=== PATIENT | male | born 1965 | race Caucasian/White ===

== ENCOUNTER 2019-08-25 | Emergency (ER) | payer SELFPAY ==
[2019-08-25 16:29] LABS: HEMATOCRIT 50.5 % (39.0-50.0); HEMOGLOBIN 17.4 g/dl (14.0-18.0); IMMATURE GRANULOCYTES 0.4 % (0.0-5.0); MEAN CELL VOLUME 85.7 fL CALC (80.0-100.0); MEAN CORPUSCULAR HGB 29.5 pG CALC (26.0-32.0); MEAN CORPUSCULAR HGB CONC 34.5 g/L CALC (32.0-36.0); NEUT# 16.53 thou/uL (1.82-7.42); RED BLOOD COUNT 5.89 mill/uL (4.70-6.10); RED CELL DISTRI WIDTH 13.4 % (11.5-15.5)
[2019-08-25 16:50] LABS: ALBUMIN 5.6 g/dL (3.2-5.0); ALKALINE PHOSPHATASE 82 u/l (38-126); ANION GAP 23 (6-22 (CALC)); BILIRUBIN, TOTAL 0.9 mg/dL (0.0-1.4); BUN 20 mg/dL (9-20); BUN/CREATININE RATIO 16 (12-20 (CALC)); CARBON DIOXIDE 26 mmol/l (22-30); CHLORIDE 102 mmol/l (95-108); CREATININE 1.2 mg/dL (0.7-1.3); GFR > 60 ML/MIN (>=60 (CALC)); GFR FOR AFR.AMER. > 60 ML/MIN (>=60 (CALC)); LIPASE 25 u/l (23-300); POTASSIUM 4.4 mmol/l (3.5-5.1); SGOT/AST 36 u/l (17-59); SODIUM 146 mmol/l (137-146); TOTAL PROTEIN 9.3 g/dL (6.3-8.2)
[2019-08-25] MEDS ORDERED: ZOFRAN4 MG/TAB PO (18:16)
== END 2019-08-25 19:16 | disposition home or self-care (01) | DRG 866 ==
DX: B34.9 Viral infection, unspecified (principal); Q05.9 Spina bifida, unspecified

== ENCOUNTER 2019-08-28 | Emergency (ER) | payer SELFPAY ==
[~2019-08-28] MED LIST: ZOFRAN4 MG/TAB PO
[2019-08-28] MEDS ORDERED: PHENERGAN25 MG/TAB PO (14:48)
[2019-08-28 16:02] LABS: HEMOGLOBIN 16.3 g/dl (14.0-18.0); IMMATURE GRANULOCYTES 0.6 % (0.0-5.0); MEAN CELL VOLUME 86.8 fL CALC (80.0-100.0); MEAN CORPUSCULAR HGB 29.5 pG CALC (26.0-32.0); NEUT# 12.81 thou/uL (1.82-7.42); RED BLOOD COUNT 5.53 mill/uL (4.70-6.10); RED CELL DISTRI WIDTH 13.2 % (11.5-15.5)
[2019-08-28 16:44] LABS: ALBUMIN 4.8 g/dL (3.2-5.0); ALKALINE PHOSPHATASE 68 u/l (38-126); ANION GAP 18 (6-22 (CALC)); BILIRUBIN, TOTAL 1.1 mg/dL (0.0-1.4); BUN 28 mg/dL (9-20); BUN/CREATININE RATIO 25 (12-20 (CALC)); CARBON DIOXIDE 29 mmol/l (22-30); CHLORIDE 96 mmol/l (95-108); CREATININE 1.1 mg/dL (0.7-1.3); GFR > 60 ML/MIN (>=60 (CALC)); GFR FOR AFR.AMER. > 60 ML/MIN (>=60 (CALC)); LIPASE 275 u/l (23-300); POTASSIUM 3.3 mmol/l (3.5-5.1); SGOT/AST 87 u/l (17-59); SODIUM 140 mmol/l (137-146); TOTAL PROTEIN 8.1 g/dL (6.3-8.2)
[2019-08-28 17:37] LABS: URINE BILIRUBIN - DIPSTICK NEGATIVE (NEGATIVE); URINE BLOOD DIPSTICK NEGATIVE (NEGATIVE); URINE COLOR YELLOW; URINE GLUCOSE - DIPSTICK NEGATIVE (NEGATIVE); URINE KETONE NEGATIVE (NEGATIVE); URINE LEUK ESTERASE NEGATIVE (NEGATIVE); URINE NITRITE - DIPSTICK NEGATIVE (Negative); URINE PROTEIN - DIPSTICK 30 mg/dL (NEG-TRACE)
[2019-08-28 17:49] LABS: BARBITURATES NEGATIVE (NEGATIVE); COCAINE NEGATIVE (NEGATIVE); METHADONE NEGATIVE (NEGATIVE); OXCYCODONE NEGATIVE (NEGATIVE); TETRAHYDROCANNABIONOL POSITIVE (NEGATIVE); TRICYLIC ANTIDEPRESSANTS NEGATIVE (NEGATIVE)
[2019-08-28 17:57] LABS: URINE SQUAMOUS EPITHELIAL CELL FEW EPI/hpf (0-FEW)
[2019-08-28] MEDS ORDERED: DICYCLOMINE20 MG PO (20:25)
[2019-08-28] MEDS ORDERED: ZOFRAN4 MG/TAB PO (20:25)
--- NOTE | 2019-08-30 10:46 | NUR ---
Called and left for pt due to blood culture preliminary results growing gram positive cocci in 1/2 sets.
--- NOTE | 2019-08-30 13:20 | NUR ---
Spoke with pt concerning blood culture results. Pt reports he is having fevers, has a "bug bite" that is swollen and painful, and still having abdominal pain. Recommended to patient that if he is unable to see his PCP today, he should return to the ED. Pt verbalized understanding.
== END 2019-08-28 20:33 | disposition home or self-care (01) | DRG 392 ==
DX: R10.84 Generalized abdominal pain (principal); R11.2 Nausea with vomiting, unspecified; Q05.9 Spina bifida, unspecified

== ENCOUNTER 2019-08-30 13:39 | Observation (INO) | payer SELFPAY ==
[~2019-08-30] VITALS: Ht 177.8 cm; Wt 100.0 kg
[~2019-08-30 13:39] MED LIST changes: +DICYCLOMINE20 MG PO; +PHENERGAN25 MG/TAB PO
[2019-08-30] MEDS ORDERED: FAMOTIDINE20 M1 PO (14:26)
[2019-08-30 15:50] LABS: HEMATOCRIT 45.3 % (39.0-50.0); HEMOGLOBIN 15.7 g/dl (14.0-18.0); MEAN CELL VOLUME 84.5 fL CALC (80.0-100.0); MEAN CORPUSCULAR HGB 29.3 pG CALC (26.0-32.0); MEAN CORPUSCULAR HGB CONC 34.7 g/L CALC (32.0-36.0); NEUT# 10.35 thou/uL (1.82-7.42); RED BLOOD COUNT 5.36 mill/uL (4.70-6.10); RED CELL DISTRI WIDTH 12.8 % (11.5-15.5)
[2019-08-30 16:16] LABS: ALBUMIN 4.1 g/dL (3.2-5.0); ALKALINE PHOSPHATASE 56 u/l (38-126); ANION GAP 14 (6-22 (CALC)); BILIRUBIN, TOTAL 0.8 mg/dL (0.0-1.4); BUN 16 mg/dL (9-20); BUN/CREATININE RATIO 19 (12-20 (CALC)); CARBON DIOXIDE 26 mmol/l (22-30); CHLORIDE 101 mmol/l (95-108); CREATININE 0.8 mg/dL (0.7-1.3); GFR > 60 ML/MIN (>=60 (CALC)); GFR FOR AFR.AMER. > 60 ML/MIN (>=60 (CALC)); LIPASE 522 u/l (23-300); POTASSIUM 3.4 mmol/l (3.5-5.1); SGOT/AST 38 u/l (17-59); SODIUM 137 mmol/l (137-146)
[2019-08-30 19:52] VITALS: BP 176/92
[2019-08-31 00:13] VITALS: BP 191/104
[2019-08-31 01:48] VITALS: BP 170/94
[2019-08-31 03:30] VITALS: BP 158/104
[2019-08-31 05:25] VITALS: BP 160/80
[2019-08-31 08:00] VITALS: BP 132/75
== END 2019-08-31 14:00 | disposition home or self-care (01) | DRG 392 ==
LOC: ED 13:39 → ED-I 16:37 → ED 16:50 → MS2 16:51
PROVIDERS: Family Medicine; ADMIT Internal Medicine; ATTEND Internal Medicine
DX: R11.2 Nausea with vomiting, unspecified (principal); R10.9 Unspecified abdominal pain; R19.7 Diarrhea, unspecified; R23.8 Other skin changes; R79.89 Other specified abnormal findings of blood chemistry; F12.90 Cannabis use, unspecified, uncomplicated; Q05.9 Spina bifida, unspecified; K29.70 Gastritis, unspecified, without bleeding; Z87.891 Personal history of nicotine dependence; Z87.898 Personal history of other specified conditions; Z23 Encounter for immunization
CPT/HCPCS: G0378; J1650

== ENCOUNTER 2021-08-27 17:45 | Emergency (ER) | payer SELFPAY ==
[~2021-08-27] VITALS: Ht 177.8 cm; Wt 100.0 kg
[~2021-08-27 17:45] MED LIST changes: +FAMOTIDINE20 M1 PO
[2021-08-27 20:27] LABS: HEMATOCRIT 48.1 % (39.0-50.0); HEMOGLOBIN 16.3 g/dl (14.0-18.0); IMMATURE GRANULOCYTES 0.3 % (0.0-5.0); MEAN CELL VOLUME 85.9 fL CALC (80.0-100.0); MEAN CORPUSCULAR HGB 29.1 pG CALC (26.0-32.0); MEAN CORPUSCULAR HGB CONC 33.9 g/dL CAL (32.0-36.0); NEUT# 2.92 thou/uL (1.82-7.42); RED BLOOD COUNT 5.6 mill/uL (4.70-6.10); RED CELL DISTRI WIDTH 13.4 % (11.5-15.5); URINE BILIRUBIN - DIPSTICK NEGATIVE (NEGATIVE); URINE BLOOD DIPSTICK NEGATIVE (NEGATIVE); URINE COLOR YELLOW; URINE GLUCOSE - DIPSTICK NEGATIVE (NEGATIVE); URINE KETONE NEGATIVE (NEGATIVE); URINE LEUK ESTERASE NEGATIVE (NEGATIVE); URINE PROTEIN - DIPSTICK NEGATIVE (NEG-TRACE); URINE SPECIFIC GRAVITY >=1.030; URINE UROBILINOGEN - DIPSTICK 0.2 E.U./dL (0.2)
[2021-08-27 20:29] LABS: URINE NITRITE - DIPSTICK NEGATIVE (Negative)
[2021-08-27 20:38] LABS: ALBUMIN 4.5 g/dL (3.2-5.0); ALKALINE PHOSPHATASE 81 u/l (38-126); BILIRUBIN, TOTAL 0.5 mg/dL (0.0-1.4); BUN 17 mg/dL (9-20); BUN/CREATININE RATIO 16 (12-20 (CALC)); CARBON DIOXIDE 28 mmol/l (22-30); CHLORIDE 106 mmol/l (95-108); CREATININE 1.1 mg/dL (0.7-1.3); GFR > 60 ML/MIN (>=60 (CALC)); GFR FOR AFR.AMER. > 60 ML/MIN (>=60 (CALC)); SGOT/AST 31 u/l (17-59); SODIUM 143 mmol/l (137-146); TOTAL PROTEIN 8.2 g/dL (6.3-8.2)
[2021-08-27 20:39] LABS: ANION GAP 14 (6-22 (CALC)); POTASSIUM 4.5 mmol/l (3.5-5.1)
[2021-08-27 20:55] VITALS: BP 139/87
== END 2021-08-27 20:55 | disposition home or self-care (01) | DRG 179 ==
LOC: ED 17:45
PROVIDERS: Emergency Medicine
DX: U07.1 COVID-19 (principal); Q05.9 Spina bifida, unspecified; F41.9 Anxiety disorder, unspecified; F32.A Depression, unspecified; G47.33 Obstructive sleep apnea (adult) (pediatric)

== ENCOUNTER 2022-06-20 09:51 | Emergency (ER) | payer MEDICAID ==
[~2022-06-20] VITALS: Ht 177.8 cm; Wt 97.4 kg
[2022-06-20] VITALS (16 sets, daily range): BP systolic 128–191; BP diastolic 84–126
[2022-06-20 10:36] LABS: HEMATOCRIT 46.3 % (39.0-50.0); HEMOGLOBIN 15.7 g/dl (14.0-18.0); IMMATURE GRANULOCYTES 0.2 % (0.0-5.0); MEAN CELL VOLUME 83.7 fL CALC (80.0-100.0); MEAN CORPUSCULAR HGB 28.4 pG CALC (26.0-32.0); MEAN CORPUSCULAR HGB CONC 33.9 g/dL CAL (32.0-36.0); NEUT# 6.11 thou/uL (1.82-7.42); RED BLOOD COUNT 5.53 mill/uL (4.70-6.10); RED CELL DISTRI WIDTH 12.9 % (11.5-15.5)
[2022-06-20 10:55] LABS: URINE BILIRUBIN - DIPSTICK NEGATIVE (NEGATIVE); URINE BLOOD DIPSTICK NEGATIVE (NEGATIVE); URINE COLOR YELLOW; URINE GLUCOSE - DIPSTICK NEGATIVE (NEGATIVE); URINE KETONE NEGATIVE (NEGATIVE); URINE LEUK ESTERASE NEGATIVE (NEGATIVE); URINE PROTEIN - DIPSTICK NEGATIVE (NEG-TRACE); URINE SPECIFIC GRAVITY >=1.030; URINE UROBILINOGEN - DIPSTICK 0.2 E.U./dL (0.2)
[2022-06-20 10:55] LABS: ALBUMIN 4.6 g/dL (3.2-5.0); ALKALINE PHOSPHATASE 62 u/l (38-126); ANION GAP 12 (6-22 (CALC)); BILIRUBIN, TOTAL 0.5 mg/dL (0.0-1.4); BUN 13 mg/dL (9-20); BUN/CREATININE RATIO 11 (12-20 (CALC)); CARBON DIOXIDE 27 mmol/l (22-30); CHLORIDE 108 mmol/l (95-108); CREATININE 1.2 mg/dL (0.7-1.3); GFR FOR AFR.AMER. > 60 ML/MIN (>=60 (CALC)); GFR OTHER RACES > 60 ML/MIN (>=60 (CALC)); LIPASE 67 u/l (23-300); SGOT/AST 25 u/l (17-59); SODIUM 142 mmol/l (137-146); TOTAL PROTEIN 7.3 g/dL (6.3-8.2)
[2022-06-20 10:56] LABS: URINE NITRITE - DIPSTICK NEGATIVE (Negative)
[2022-06-20] MEDS ORDERED: VISTARIL 50MG C50 M1 PO (14:25)
[2022-06-21] MEDS ORDERED: BUSPIRONE5 MG PO (07:30)
[2022-06-21] MEDS ORDERED: NEXIUM20 M1 PO (07:31)
== END 2022-06-20 14:29 | disposition home or self-care (01) ==
LOC: ED 09:51
PROVIDERS: Family Medicine
DX: R10.32 Left lower quadrant pain (principal); I10 Essential (primary) hypertension; F41.9 Anxiety disorder, unspecified; F32.A Depression, unspecified; Q05.9 Spina bifida, unspecified

== ENCOUNTER 2022-06-21 06:58 | Observation (INO) | payer MEDICAID ==
[2022-06-21] VITALS (23 sets, daily range): BP systolic 141–231; BP diastolic 88–125
[~2022-06-21] VITALS: Ht 177.8 cm; Wt 100.0 kg
[~2022-06-21 06:58] MED LIST changes: +VISTARIL 50MG C50 M1 PO
[2022-06-21] MEDS ORDERED: BUSPIRONE5 MG PO (07:30)
[2022-06-21] MEDS ORDERED: NEXIUM20 M1 PO (07:31)
[2022-06-21 08:16] LABS: IMMATURE GRANULOCYTES 0.1 % (0.0-5.0); MEAN CELL VOLUME 82.7 fL CALC (80.0-100.0); MEAN CORPUSCULAR HGB CONC 33.9 g/dL CAL (32.0-36.0); NEUT# 8.31 thou/uL (1.82-7.42); RED BLOOD COUNT 6.35 mill/uL (4.70-6.10); RED CELL DISTRI WIDTH 12.8 % (11.5-15.5)
[2022-06-21 08:19] LABS: HEMATOCRIT 52.5 % (39.0-50.0); HEMOGLOBIN 17.8 g/dl (14.0-18.0)
[2022-06-21 08:33] LABS: ALBUMIN 5.3 g/dL (3.2-5.0); BUN 15 mg/dL (9-20); BUN/CREATININE RATIO 12 (12-20 (CALC)); CHLORIDE 110 mmol/l (95-108); CREATININE 1.3 mg/dL (0.7-1.3); GFR FOR AFR.AMER. > 60 ML/MIN (>=60 (CALC)); GFR OTHER RACES 57 ML/MIN (>=60 (CALC)); LIPASE 75 u/l (23-300); POTASSIUM 4.2 mmol/l (3.5-5.1); SODIUM 144 mmol/l (137-146); TOTAL PROTEIN 8.7 g/dL (6.3-8.2)
[2022-06-21 08:42] LABS: ALKALINE PHOSPHATASE 95 u/l (38-126); ANION GAP 23 (6-22 (CALC)); CARBON DIOXIDE 15 mmol/l (22-30); SGOT/AST 44 u/l (17-59)
[2022-06-21 18:44] LABS: URINE BILIRUBIN - DIPSTICK NEGATIVE (NEGATIVE); URINE BLOOD DIPSTICK NEGATIVE (NEGATIVE); URINE COLOR YELLOW; URINE GLUCOSE - DIPSTICK 100 mg/dL (NEGATIVE); URINE KETONE 40 mg/dL (NEGATIVE); URINE LEUK ESTERASE NEGATIVE (NEGATIVE); URINE PROTEIN - DIPSTICK TRACE mg/dL (NEG-TRACE); URINE SPECIFIC GRAVITY >=1.030; URINE UROBILINOGEN - DIPSTICK 0.2 E.U./dL (0.2)
[2022-06-21 18:48] LABS: URINE NITRITE - DIPSTICK NEGATIVE (Negative)
[2022-06-22] VITALS (8 sets, daily range): BP systolic 133–197; BP diastolic 61–104
[2022-06-22 05:31] LABS: HEMATOCRIT 47.4 % (39.0-50.0); HEMOGLOBIN 16.5 g/dl (14.0-18.0); IMMATURE GRANULOCYTES 0.3 % (0.0-5.0); MEAN CELL VOLUME 82.9 fL CALC (80.0-100.0); MEAN CORPUSCULAR HGB 28.8 pG CALC (26.0-32.0); MEAN CORPUSCULAR HGB CONC 34.8 g/dL CAL (32.0-36.0); NEUT# 22.7 thou/uL (1.82-7.42); RED BLOOD COUNT 5.72 mill/uL (4.70-6.10)
[2022-06-22 05:51] LABS: BUN 18 mg/dL (9-20); BUN/CREATININE RATIO 18 (12-20 (CALC)); CHLORIDE 110 mmol/l (95-108); GFR FOR AFR.AMER. > 60 ML/MIN (>=60 (CALC)); GFR OTHER RACES > 60 ML/MIN (>=60 (CALC)); SODIUM 143 mmol/l (137-146)
[2022-06-22 05:53] LABS: ANION GAP 17 (6-22 (CALC)); POTASSIUM 3.9 mmol/l (3.5-5.1)
[2022-06-22 05:54] LABS: CARBON DIOXIDE 20 mmol/l (22-30)
[2022-06-23] VITALS (9 sets, daily range): BP systolic 118–193; BP diastolic 71–117
[2022-06-23 07:24] LABS: HEMATOCRIT 43.8 % (39.0-50.0); HEMOGLOBIN 14.8 g/dl (14.0-18.0); MEAN CELL VOLUME 84.9 fL CALC (80.0-100.0); MEAN CORPUSCULAR HGB 28.7 pG CALC (26.0-32.0); MEAN CORPUSCULAR HGB CONC 33.8 g/dL CAL (32.0-36.0); RED BLOOD COUNT 5.16 mill/uL (4.70-6.10); RED CELL DISTRI WIDTH 13.1 % (11.5-15.5)
[2022-06-23 08:18] LABS: ANION GAP 12 (6-22 (CALC)); BUN 19 mg/dL (9-20); BUN/CREATININE RATIO 21 (12-20 (CALC)); CHLORIDE 107 mmol/l (95-108); CREATININE 0.9 mg/dL (0.7-1.3); GFR FOR AFR.AMER. > 60 ML/MIN (>=60 (CALC)); GFR OTHER RACES > 60 ML/MIN (>=60 (CALC)); MAGNESIUM 2.1 mg/dL (1.6-2.3); POTASSIUM 4.2 mmol/l (3.5-5.1); SODIUM 140 mmol/l (137-146)
[2022-06-23 08:19] LABS: CARBON DIOXIDE 25 mmol/l (22-30)
[2022-06-23] MEDS ORDERED: BUSPAR15 MG PO (19:42)
[2022-06-23] MEDS ORDERED: FLUOXETINE20 MG PO (19:43)
[2022-06-23] MEDS ORDERED: LISINOPRIL5 MG PO (19:43)
[2022-06-24] VITALS (10 sets, daily range): BP systolic 131–207; BP diastolic 72–110
[2022-06-24 05:20] LABS: HEMATOCRIT 42.9 % (39.0-50.0); HEMOGLOBIN 14.4 g/dl (14.0-18.0); MEAN CELL VOLUME 84.8 fL CALC (80.0-100.0); MEAN CORPUSCULAR HGB 28.5 pG CALC (26.0-32.0); MEAN CORPUSCULAR HGB CONC 33.6 g/dL CAL (32.0-36.0); RED BLOOD COUNT 5.06 mill/uL (4.70-6.10); RED CELL DISTRI WIDTH 12.9 % (11.5-15.5)
[2022-06-24 05:47] LABS: ALKALINE PHOSPHATASE 58 u/l (38-126); ANION GAP 10 (6-22 (CALC)); BILIRUBIN, TOTAL 0.7 mg/dL (0.0-1.4); BUN 18 mg/dL (9-20); BUN/CREATININE RATIO 21 (12-20 (CALC)); CARBON DIOXIDE 26 mmol/l (22-30); CHLORIDE 106 mmol/l (95-108); CREATININE 0.9 mg/dL (0.7-1.3); GFR FOR AFR.AMER. > 60 ML/MIN (>=60 (CALC)); GFR OTHER RACES > 60 ML/MIN (>=60 (CALC)); MAGNESIUM 2.1 mg/dL (1.6-2.3); POTASSIUM 4.1 mmol/l (3.5-5.1); SGOT/AST 34 u/l (17-59); SODIUM 139 mmol/l (137-146)
[2022-06-24 05:50] LABS: ALBUMIN 3.9 g/dL (3.2-5.0); TOTAL PROTEIN 6.3 g/dL (6.3-8.2)
[2022-06-25] VITALS: BP 146/84
[2022-06-25 04:23] VITALS: BP 161/96
[2022-06-25 05:36] VITALS: BP 146/89
[2022-06-25 05:47] LABS: HEMATOCRIT 45.1 % (39.0-50.0); HEMOGLOBIN 15.1 g/dl (14.0-18.0); IMMATURE GRANULOCYTES 0.3 % (0.0-5.0); MEAN CELL VOLUME 83.8 fL CALC (80.0-100.0); MEAN CORPUSCULAR HGB 28.1 pG CALC (26.0-32.0); MEAN CORPUSCULAR HGB CONC 33.5 g/dL CAL (32.0-36.0); NEUT# 6.7 thou/uL (1.82-7.42); RED BLOOD COUNT 5.38 mill/uL (4.70-6.10); RED CELL DISTRI WIDTH 12.5 % (11.5-15.5)
[2022-06-25 06:14] LABS: ALBUMIN 4.2 g/dL (3.2-5.0); ALKALINE PHOSPHATASE 56 u/l (38-126); ANION GAP 12 (6-22 (CALC)); BILIRUBIN, TOTAL 0.8 mg/dL (0.0-1.4); BUN 19 mg/dL (9-20); BUN/CREATININE RATIO 22 (12-20 (CALC)); CARBON DIOXIDE 25 mmol/l (22-30); CHLORIDE 105 mmol/l (95-108); CREATININE 0.9 mg/dL (0.7-1.3); GFR FOR AFR.AMER. > 60 ML/MIN (>=60 (CALC)); GFR OTHER RACES > 60 ML/MIN (>=60 (CALC)); MAGNESIUM 2.1 mg/dL (1.6-2.3); POTASSIUM 3.7 mmol/l (3.5-5.1); SGOT/AST 33 u/l (17-59); SODIUM 139 mmol/l (137-146); TOTAL PROTEIN 6.6 g/dL (6.3-8.2)
[2022-06-25 06:35] VITALS: BP 159/95
[2022-06-25 07:53] VITALS: BP 159/95
[2022-06-25] MEDS ORDERED: CIPROFLOXACN500 MG PO (10:57)
[2022-06-25] MEDS ORDERED: METRONIDAZOLE500 MG PO (10:57)
[2022-06-25] MEDS ORDERED: XANAX0.25 MG PO (10:58)
== END 2022-06-25 11:26 | disposition home or self-care (01) ==
LOC: ED 06:58 → ED-I 11:50 → ED 12:01 → MS2 12:02
PROVIDERS: Family Medicine; Internal Medicine; ADMIT Internal Medicine; ATTEND Internal Medicine
DX: R11.2 Nausea with vomiting, unspecified (principal); R10.84 Generalized abdominal pain; D72.829 Elevated white blood cell count, unspecified; E87.20 Acidosis, unspecified; K21.9 Gastro-esophageal reflux disease without esophagitis; F41.0 Panic disorder [episodic paroxysmal anxiety]; F32.A Depression, unspecified; G47.33 Obstructive sleep apnea (adult) (pediatric); Q05.9 Spina bifida, unspecified; Z87.891 Personal history of nicotine dependence; Z20.822 Contact with and (suspected) exposure to COVID-19; K64.9 Unspecified hemorrhoids; Z86.010 Personal history of colon polyps; Z87.898 Personal history of other specified conditions
CPT/HCPCS: G0378; J1650; J3370; S0164

== ENCOUNTER 2022-10-27 16:08 | Emergency (ER) | payer MEDICAID ==
[2022-10-27] VITALS (15 sets, daily range): BP systolic 146–168; BP diastolic 88–109
[~2022-10-27] VITALS: Ht 177.8 cm; Wt 100.0 kg
[~2022-10-27 16:08] MED LIST changes: +BUSPAR15 MG PO; +BUSPIRONE5 MG PO; +CIPROFLOXACN500 MG PO; +FLUOXETINE20 MG PO; +LISINOPRIL5 MG PO; +METRONIDAZOLE500 MG PO; +NEXIUM20 M1 PO; +XANAX0.25 MG PO
[2022-10-27 17:08] LABS: BASO% 0.1 % (0-3); EOS% 0.5 % (0-8); IMMATURE GRANULOCYTES 0.2 % (0.0-5.0); LYMPH% 4.4 % (15-41); MEAN CELL VOLUME 84.8 fL CALC (80.0-100.0); MEAN CORPUSCULAR HGB 28.4 pG CALC (26.0-32.0); MEAN CORPUSCULAR HGB CONC 33.5 g/dL CAL (32.0-36.0); MONO% 2.5 % (2-13); NEUT# 17.06 thou/uL (1.82-7.42); NEUT% 92.3 % (42-76); RED BLOOD COUNT 6.65 mill/uL (4.70-6.10); RED CELL DISTRI WIDTH 13.2 % (11.5-15.5)
[2022-10-27 17:11] LABS: HEMATOCRIT 56.4 % (39.0-50.0); HEMOGLOBIN 18.9 g/dl (14.0-18.0)
[2022-10-27 17:21] LABS: BUN 15 mg/dL (9-20); BUN/CREATININE RATIO 13 (12-20 (CALC)); CARBON DIOXIDE 23 mmol/l (22-30); CHLORIDE 110 mmol/l (95-108); CREATININE 1.1 mg/dL (0.7-1.3); GFR FOR AFR.AMER. > 60 ML/MIN (>=60 (CALC)); GFR OTHER RACES > 60 ML/MIN (>=60 (CALC)); LIPASE 54 u/l (23-300); SGOT/AST 38 u/l (17-59); SODIUM 145 mmol/l (137-146)
[2022-10-27 17:33] LABS: ALBUMIN 5.4 g/dL (3.2-5.0); ALKALINE PHOSPHATASE 88 u/l (38-126); ANION GAP 17 (6-22 (CALC)); BILIRUBIN, TOTAL 1.2 mg/dL (0.2-1.3); POTASSIUM 4.9 mmol/l (3.5-5.1); TOTAL PROTEIN 9.4 g/dL (6.3-8.2)
[2022-10-27] MEDS ORDERED: ONDANSETRON4 MG PO (20:35)
[2022-10-27] MEDS ORDERED: CIPROFLOXACN500 MG PO (20:35)
[2022-10-27] MEDS ORDERED: METRONIDAZOLE500 MG PO (20:35)
== END 2022-10-27 22:10 | disposition home or self-care (01) ==
LOC: ED 16:08
PROVIDERS: Family Medicine
DX: R11.2 Nausea with vomiting, unspecified (principal); D72.829 Elevated white blood cell count, unspecified; I10 Essential (primary) hypertension; Z20.822 Contact with and (suspected) exposure to COVID-19
CPT/HCPCS: J1956

== ENCOUNTER 2022-10-29 09:10 | Observation (INO) | payer MEDICAID ==
[2022-10-29] VITALS (19 sets, daily range): BP systolic 121–217; BP diastolic 80–128
[~2022-10-29] VITALS: Ht 177.8 cm; Wt 97.5 kg
--- NOTE | 2022-10-29 08:00 | NUR ---
PT IN BED RESTING, AWAKE. AT BEDSIDE. NO COMPLAINTS. WILL CONTINUE TO MOINTOR.
[~2022-10-29 09:10] MED LIST changes: +ONDANSETRON4 MG PO
--- NOTE | 2022-10-29 09:15 | NUR ---
PT ARRIVE TO ER VIA POV. PT AMBULATED TO RM 1. PROVIDER NOTIFIED.
[2022-10-29 09:38] LABS: BASO% 0.2 % (0-3); EOS% 0.7 % (0-8); IMMATURE GRANULOCYTES 0.1 % (0.0-5.0); LYMPH% 18.2 % (15-41); MEAN CELL VOLUME 84.3 fL CALC (80.0-100.0); MEAN CORPUSCULAR HGB 28.1 pG CALC (26.0-32.0); MEAN CORPUSCULAR HGB CONC 33.3 g/dL CAL (32.0-36.0); MONO% 5.9 % (2-13); NEUT# 7.48 thou/uL (1.82-7.42); NEUT% 74.9 % (42-76); RED BLOOD COUNT 5.73 mill/uL (4.70-6.10); RED CELL DISTRI WIDTH 12.9 % (11.5-15.5)
[2022-10-29 09:39] LABS: HEMATOCRIT 48.3 % (39.0-50.0); HEMOGLOBIN 16.1 g/dl (14.0-18.0)
[2022-10-29 09:58] LABS: ALBUMIN 4.9 g/dL (3.2-5.0); ALKALINE PHOSPHATASE 81 u/l (38-126); BUN 22 mg/dL (9-20); BUN/CREATININE RATIO 20 (12-20 (CALC)); CARBON DIOXIDE 25 mmol/l (22-30); CHLORIDE 107 mmol/l (95-108); CREATININE 1.1 mg/dL (0.7-1.3); GFR FOR AFR.AMER. > 60 ML/MIN (>=60 (CALC)); GFR OTHER RACES > 60 ML/MIN (>=60 (CALC)); LIPASE 105 u/l (23-300); SGOT/AST 42 u/l (17-59); SODIUM 144 mmol/l (137-146); TOTAL PROTEIN 8.4 g/dL (6.3-8.2)
[2022-10-29 10:01] LABS: ANION GAP 16 (6-22 (CALC)); BILIRUBIN, TOTAL 0.6 mg/dL (0.2-1.3); POTASSIUM 3.8 mmol/l (3.5-5.1)
--- NOTE | 2022-10-29 10:33 | NUR ---
PT AND VITALS STABLE. PT AT BEDSIDE
--- NOTE | 2022-10-29 11:22 | NUR ---
PT RESTING. PT STABLE BP ELEVATED PROVIDER NOTIFIED AND MEDS GIVEN WILL REASSESS
--- NOTE | 2022-10-29 11:36 | NUR ---
CONTACTED DR VILLAR IN REFERENCE TO A PHYSICIAN CONSULT AT 1136 HRS.
--- NOTE | 2022-10-29 11:37 | NUR ---
PROVIDER AT BEDSIDE. EKG COMPLETED
--- NOTE | 2022-10-29 12:00 | NUR ---
PT IN BED RESTING, AWAKE. AT BEDSIDE. NO COMPLAINTS. WILL CONTINUE TO MOINTOR.
--- NOTE | 2022-10-29 12:39 | NUR ---
PT STABLE, BP SLIGHTLY ELEVATED. PT RESTING WITH SPOUSE AT BEDSIDE
[2022-10-29] MEDS ORDERED: BUSPIRONE5 MG PO (15:53)
[2022-10-29] MEDS ORDERED: ALLOPURINOL100 MG PO (15:53)
--- NOTE | 2022-10-29 18:00 | NUR ---
PT IN BED RESTING, AWAKE. AT BEDSIDE. NO COMPLAINTS. WILL CONTINUE TO MOINTOR.
--- NOTE | 2022-10-29 19:50 | NUR ---
PATIENT RESTING IN BED. ALERT AND ABLE TO MAKE NEEDS KNOWN. COMPLAINTS OF NAUSEA/VOMIT STILL. WILL CALL BEHAVIORAL HEALTH CASE MANAGER MD. NO COMPLAINTS OF PAIN. NO DISTRESS NOTED. ASSESSMENT COMPLETE. AT BEDSIDE. BED IN LOW POSITION. CALL [facility] IN REACH.
--- NOTE | 2022-10-29 19:53 | NUR ---
NOTIFIED AIRPLANE FLIGHT ATTENDANT MD IF PATIENT STILL HAVING NAUSEA/VOMIT. NEW ORDER RECEIVED. SEE EMAR.
--- NOTE | 2022-10-29 22:57 | NUR ---
CALLED VOCATIONAL INSTRUCTOR PROVIDER AND INFORMED OF PATIENTS BLOOD PRESSURE OF 176/100. NEW ORDER RECEIVED. SEE EMAR.
--- NOTE | 2022-10-29 23:30 | NUR ---
PATIENT RECEIVED ONE TIME DOSE OF NORVASC PER MD ORDER DUE TO INCREASED BP. WILL CONTINUE TO MONITOR.
[2022-10-30] VITALS (7 sets, daily range): BP systolic 139–211; BP diastolic 57–102
--- NOTE | 2022-10-30 04:11 | NUR ---
CALLED [employer]IT ADVISOR MD ABOUT PATIENT HAVING INCREASED ANXIETY. NEW ORDER RECEIVED.
--- NOTE | 2022-10-30 04:34 | NUR ---
PATIENT RECEIVED PRN ATIVAN FOR INCREASED ANXIETY. TOLERATED WELL.
[2022-10-30 04:40] LABS: URINE BILIRUBIN - DIPSTICK NEGATIVE (NEGATIVE); URINE BLOOD DIPSTICK NEGATIVE (NEGATIVE); URINE COLOR YELLOW; URINE GLUCOSE - DIPSTICK 100 mg/dL (NEGATIVE); URINE KETONE 40 mg/dL (NEGATIVE); URINE LEUK ESTERASE NEGATIVE (NEGATIVE); URINE PH 7.5 (4.5-8.0); URINE PROTEIN - DIPSTICK 30 mg/dL (NEG-TRACE); URINE UROBILINOGEN - DIPSTICK 0.2 E.U./dL (0.2)
[2022-10-30 04:41] LABS: URINE NITRITE - DIPSTICK NEGATIVE (Negative)
[2022-10-30 04:48] LABS: URINE BACTERIA RARE hpf; URINE EPITHELIAL CELLS RARE EPI/hpf (0-FEW); URINE RBC 0-2 RBC/hpf (0-5); URINE WBC 0-2 WBC/hpf (0-5)
[2022-10-30 04:49] LABS: URINE MUCUS FEW hpf (NONE-FEW)
--- NOTE | 2022-10-30 06:35 | NUR ---
PATIENT KEEPS BENDING ARM THAT IV IS IN SETTING OFF IV. FREQUENTLY REMINDING PATIENT THAT BENDING THE ARM AND PULLING AT LINE WILL SET OFF IV PUMP.
--- NOTE | 2022-10-30 07:50 | NUR ---
PT LYING IN BED. NO COMPLAINTS/DISTRESS AT THIS TIME. WILL CONTINUE TO MONITOR.
[2022-10-30] MEDS ORDERED: AMLODIPINE BESYL5 MG PO (13:11)
--- NOTE | 2022-10-30 14:54 | NUR ---
BP INCREASED, JENNIFER SERRANO MADE REPORTED SHE INFORMED DR FRAGA AND PT FEELS THAT IF HE GOES HOME BP WILL RESOLVE, STATED HIS ANXIETY IS VERY HIGH WILE HERE.
--- NOTE | 2022-10-30 15:09 | NUR ---
PT DC HOME AMBULATORY WITH . IV REMOVED.
== END 2022-10-30 15:09 | disposition home or self-care (01) ==
LOC: ED 09:10 → ED-I 11:30 → ED 11:45 → MS2 11:46
PROVIDERS: Family Medicine; ADMIT Internal Medicine; ATTEND Internal Medicine
DX: R11.2 Nausea with vomiting, unspecified (principal); F12.90 Cannabis use, unspecified, uncomplicated; K21.9 Gastro-esophageal reflux disease without esophagitis; I10 Essential (primary) hypertension; K44.9 Diaphragmatic hernia without obstruction or gangrene; F41.9 Anxiety disorder, unspecified; Q05.9 Spina bifida, unspecified; T46.5X6A Underdosing of other antihypertensive drugs, initial encounter; Z91.128 Patient's intentional underdosing of medication regimen for other reason; Z87.891 Personal history of nicotine dependence; Z86.010 Personal history of colon polyps; Z20.822 Contact with and (suspected) exposure to COVID-19
CPT/HCPCS: G0378; J1650; J2060

== ENCOUNTER 2022-11-13 11:39 | Emergency (ER) | payer MEDICAID ==
[2022-11-13] VITALS (14 sets, daily range): BP systolic 129–171; BP diastolic 84–113
[~2022-11-13] VITALS: Ht 177.8 cm; Wt 99.7 kg
[~2022-11-13 11:39] MED LIST changes: +ALLOPURINOL100 MG PO; +AMLODIPINE BESYL5 MG PO
[2022-11-13 13:32] LABS: ALBUMIN 5.5 g/dL (3.2-5.0); ALKALINE PHOSPHATASE 74 u/l (38-126); BILIRUBIN, TOTAL 0.8 mg/dL (0.2-1.3); BUN 16 mg/dL (9-20); BUN/CREATININE RATIO 17 (12-20 (CALC)); CHLORIDE 105 mmol/l (95-108); CREATININE 0.9 mg/dL (0.7-1.3); GFR FOR AFR.AMER. > 60 ML/MIN (>=60 (CALC)); GFR OTHER RACES > 60 ML/MIN (>=60 (CALC)); SGOT/AST 39 u/l (17-59); SODIUM 141 mmol/l (137-146)
[2022-11-13 13:33] LABS: ANION GAP 22 (6-22 (CALC)); CARBON DIOXIDE 19 mmol/l (22-30); POTASSIUM 5.4 mmol/l (3.5-5.1)
[2022-11-13 13:52] LABS: BASO% 0.1 % (0-3); EOS% 0.4 % (0-8); HEMATOCRIT 52.6 % (39.0-50.0); HEMOGLOBIN 17.6 g/dl (14.0-18.0); IMMATURE GRANULOCYTES 0.3 % (0.0-5.0); LYMPH% 20.7 % (15-41); MEAN CELL VOLUME 84.3 fL CALC (80.0-100.0); MEAN CORPUSCULAR HGB 28.2 pG CALC (26.0-32.0); MEAN CORPUSCULAR HGB CONC 33.5 g/dL CAL (32.0-36.0); MONO% 6.3 % (2-13); NEUT# 11.41 thou/uL (1.82-7.42); NEUT% 72.2 % (42-76); RED BLOOD COUNT 6.24 mill/uL (4.70-6.10)
[2022-11-13] MEDS ORDERED: REGLAN10 MG PO (16:56)
== END 2022-11-13 17:34 | disposition home or self-care (01) ==
LOC: ED 11:39
PROVIDERS: Nurse Practitioner
DX: R11.2 Nausea with vomiting, unspecified (principal); F12.10 Cannabis abuse, uncomplicated; I10 Essential (primary) hypertension; Z20.822 Contact with and (suspected) exposure to COVID-19
CPT/HCPCS: J2060

== ENCOUNTER 2023-09-18 22:28 | Emergency (ER) | payer SELFPAY ==
[~2023-09-18] VITALS: Ht 177.8 cm; Wt 130.0 kg
[~2023-09-18 22:28] MED LIST changes: +REGLAN10 MG PO
[2023-09-18 22:55] VITALS: BP 185/96
[2023-09-18 23:01] VITALS: BP 159/91
[2023-09-18 23:16] VITALS: BP 144/95
[2023-09-19 01:13] LABS: BASO% 0.1 % (0-3); EOS% 0.7 % (0-8); HEMATOCRIT 49.3 % (39.0-50.0); HEMOGLOBIN 16.4 g/dl (14.0-18.0); IMMATURE GRANULOCYTES 0.2 % (0.0-5.0); MEAN CELL VOLUME 87.6 fL CALC (80.0-100.0); MEAN CORPUSCULAR HGB 29.1 pG CALC (26.0-32.0); MEAN CORPUSCULAR HGB CONC 33.3 g/dL CAL (32.0-36.0); MONO% 4.7 % (2-13); NEUT# 13.09 thou/uL (1.82-7.42); NEUT% 81.3 % (42-76); RED BLOOD COUNT 5.63 mill/uL (4.70-6.10); RED CELL DISTRI WIDTH 12.8 % (11.5-15.5)
[2023-09-19 01:18] LABS: ALBUMIN 5.1 g/dL (3.2-5.0); ALKALINE PHOSPHATASE 68 u/l (38-126); ANION GAP 16 (6-22 (CALC)); BILIRUBIN, TOTAL 1.1 mg/dL (0.2-1.3); BUN 11 mg/dL (9-20); BUN/CREATININE RATIO 8 (12-20 (CALC)); CARBON DIOXIDE 19 mmol/l (22-30); CHLORIDE 117 mmol/l (95-108); CREATININE 1.3 mg/dL (0.7-1.3); GFR FOR AFR.AMER. > 60 ML/MIN (>=60 (CALC)); GFR OTHER RACES 57 ML/MIN (>=60 (CALC)); LIPASE 57 u/l (23-300); POTASSIUM 4.7 mmol/l (3.5-5.1); SGOT/AST 41 u/l (17-59); SODIUM 147 mmol/l (137-146); TOTAL PROTEIN 8.7 g/dL (6.3-8.2)
[2023-09-19 01:49] VITALS: BP 165/85
[2023-09-19] MEDS ORDERED: ZOFRAN4 MG/TAB PO (01:55)
[2023-09-19 02:01] VITALS: BP 174/82
[2023-09-19 02:51] VITALS: BP 164/68
== END 2023-09-19 02:56 | disposition home or self-care (01) | DRG 392 ==
LOC: ED 22:28
PROVIDERS: Family Medicine
DX: R11.2 Nausea with vomiting, unspecified (principal); F41.9 Anxiety disorder, unspecified; I10 Essential (primary) hypertension; Z20.822 Contact with and (suspected) exposure to COVID-19